=== PATIENT | male | born 1985 | race Native Hawaiian/Other Pacific Islander ===

== ENCOUNTER 2018-11-02 15:47 | Outpatient (CLI) | payer BC | END 2018-11-02 19:49 | disposition home or self-care (01) | LOC: RESP 15:47 | DX: R00.2 Palpitations (principal) | CPT/HCPCS: 93225 ==

== ENCOUNTER 2018-11-30 19:26 | Outpatient (CLI) | payer BC ==
[2018-11-30] MEDS ORDERED: ATEN50TA36 PO (19:47)
[2018-11-30] MEDS ORDERED: METHADONE10 MG PO (19:47)
== END 2018-11-30 19:31 | disposition short-term general hospital (02) ==
LOC: AMB 19:26
DX: S01.01XA Laceration without foreign body of scalp, initial encounter (principal); M54.2 Cervicalgia; M25.511 Pain in right shoulder; W11.XXXA Fall on and from ladder, initial encounter; Y93.9 Activity, unspecified; Y92.62 Dock or shipyard as the place of occurrence of the external cause
CPT/HCPCS: A0425; A0429

== ENCOUNTER 2018-11-30 19:36 | Emergency (ER) | payer OTHER ==
[~2018-11-30] VITALS: Ht 177.8 cm; Wt 103.4 kg
[2018-11-30] MEDS ORDERED: METHADONE10 MG PO (19:47)
[2018-11-30] MEDS ORDERED: ATEN50TA36 PO (19:47)
[2018-11-30 22:42] VITALS: BP 164/70; TEMP 97.7
== END 2018-11-30 22:43 | disposition home or self-care (01) ==
LOC: ED 19:36
PROC: 0HQ1XZZ Repair Face Skin, External Approach (ICD-10-PCS; principal; 2018-11-30)
DX: S01.81XA Laceration without foreign body of other part of head, initial encounter (principal); S00.83XA Contusion of other part of head, initial encounter; W17.89XA Other fall from one level to another, initial encounter; Y92.89 Other specified places as the place of occurrence of the external cause
CPT/HCPCS: 90471; 90715; 96374; 99284; J1885

== ENCOUNTER 2018-12-10 08:48 | Outpatient (CLI) | payer OTHER ==
[~2018-12-10 08:48] MED LIST: ATEN50TA36 PO; METHADONE10 MG PO
== END 2018-12-10 23:59 | disposition home or self-care (01) ==
LOC: RAD 08:48
DX: M25.531 Pain in right wrist (principal)

== ENCOUNTER 2019-04-05 19:53 | Outpatient (CLI) | payer OTHER | END 2019-04-05 20:25 | disposition home or self-care (01) | LOC: LAB 19:53 | DX: L02.415 Cutaneous abscess of right lower limb (principal) | CPT/HCPCS: 87070; 87077; 87185; 87186; 87205 ==